=== PATIENT | male | born 1955 | race Caucasian/White ===

== ENCOUNTER → 2019-01-10 | Outpatient (REF) | payer OTHER ==
[~2019-01-10] MED LIST: ALB0.5 INH; ALB18R INH; ALBU8.5H12 IH; AZIT-101 PO; AZIT-18 PO; AZIT500T47 PO; CLIN300C99 PO; HYDR-393 PO; KET10 PO; LOR5/325 PO; METH4TAB66 PO; PER PO; PHEN120S16 PO; PRE20 PO; PRED20TA6 PO; PRO25 PO; ROBC PO
[2019-01-10 12:00] LABS: PLATELET COUNT, AUTOMATED 307 K/uL (150-450)
== END ==
PROVIDERS: ATTEND Nurse Practitioner Family
DX: R07.9 Chest pain, unspecified (principal)
CPT/HCPCS: 82040; 82247; 82310; 82374; 82435; 82565; 82947; 84075; 84132; 84155; 84295; 84450; 84460; 84484; 84520; 85025